=== PATIENT | male | born 1960 | race Caucasian/White ===

== ENCOUNTER 2017-06-27 06:43 | Day surgery (SDC) | payer OTHER ==
[~2017-06-27] VITALS: Ht 180.3 cm; Wt 112.5 kg
[~2017-06-27 06:43] MED LIST: LUTEIN1 GM; MONT10T; NAPR220; Vitamin A8000 UNIT
== END 2017-06-27 08:42 | disposition home or self-care (01) ==
LOC: ORSCSDS 06:43
PROVIDERS: Surgery
PROC: 0DJD8ZZ Inspection of Lower Intestinal Tract, Via Natural or Artificial Opening Endoscopic (ICD-10-PCS; principal; 2017-06-27 08:00)
DX: Z12.11 Encounter for screening for malignant neoplasm of colon (principal); Z86.010 Personal history of colon polyps
CPT/HCPCS: J0330; J1980; J2405; J7120

== ENCOUNTER 2022-10-19 07:43 | Day surgery (SDC) | payer OTHER ==
[~2022-10-19] VITALS: Ht 180.3 cm; Wt 109.4 kg
[2022-10-19] MEDS ORDERED: TAMS.4ER PO (08:13)
--- NOTE | 2022-10-19 08:31 | NUR ---
10/19/22 0831 Paulo Buchanan TETRACAINE PLACED IN LEFT EYE AT 0809. PLEDGET FOAM PLACED IN LEFT EYE AT 0811. PT TOLERATED WELL. CALL LIGHT IN REACH.
[2022-10-19 09:31] VITALS: BP 135/89
--- NOTE | 2022-10-19 09:56 | NUR ---
10/19/22 0956 Valentino Browning IV REMOVED INTACT. SITE WNL.
== END 2022-10-19 09:42 | disposition home or self-care (01) ==
LOC: ORSCSDS 07:43
PROVIDERS: Ophthalmology
PROC: 08DK3ZZ Extraction of Left Lens, Percutaneous Approach (ICD-10-PCS; principal; 2022-10-19 09:00)
DX: H25.12 Age-related nuclear cataract, left eye (principal); H35.52 Pigmentary retinal dystrophy; Z79.899 Other long term (current) drug therapy
CPT/HCPCS: J2250; J3010; J3301; J7040; V2632

== ENCOUNTER 2023-03-14 06:44 | Day surgery (SDC) | payer OTHER ==
[~2023-03-14] VITALS: Ht 180.3 cm; Wt 111.9 kg
[~2023-03-14 06:44] MED LIST changes: +LEVSOD25 PO; +TAMS.4ER PO
[2023-03-14] MEDS ORDERED: Vitamin C100 M1 (07:28)
[2023-03-14 08:56] VITALS: BP 98/72
== END 2023-03-14 08:55 | disposition home or self-care (01) ==
LOC: ORSCSDS 06:44
PROVIDERS: Surgery
PROC: 0DBM8ZX Excision of Descending Colon, Via Natural or Artificial Opening Endoscopic, Diagnostic (ICD-10-PCS; principal; 2023-03-14 08:00)
DX: Z12.11 Encounter for screening for malignant neoplasm of colon (principal); Z86.010 Personal history of colon polyps; D12.4 Benign neoplasm of descending colon; K57.30 Diverticulosis of large intestine without perforation or abscess without bleeding; Z68.35 Body mass index [BMI] 35.0-35.9, adult; Z79.899 Other long term (current) drug therapy
CPT/HCPCS: 88305; J2704; J7120